=== PATIENT | female | born 1965 | race Caucasian/White ===

== ENCOUNTER → 2022-12-26 | Day surgery (SDC) | payer MEDICAID ==
[~2022-12-26] VITALS: Ht 152.4 cm; Wt 79.4 kg
[~2022-12-26] MED LIST: BUPIVACAINE HCL/PF 0.5% (5MG/ML) 10ML ONE; CEFAZOLIN SODIUM 1000MG/VIAL ONE; FENTANYL CITRATE/PF 50MCG/ML 2ML VIAL IV PRN; FENTANYL CITRATE/PF 50MCG/ML 2ML VIAL ONE; HYDR-4001 MT; HYDROCODONE/ACETAMINOPHEN 5/325MG TABLET PO NR; IBUP-2029 PO; LACTATED RINGERS 1,000 ML IV SCH; MEPERIDINE HCL/PF 25MG/ML CPJ IV PRN; MIDAZOLAM HCL 2 MG/2 ML VIAL ONE; NOREPINEPHRINE 8MG/250ML PMX 250ML IV PRN; OMEP20TA23 PO; ONDA4TAB11 PO; ONDANSETRON HCL 4MG/2ML INJ IV PRN; PROPOFOL 200MG/20ML VIAL IV ONE; ROCURONIUM BROMIDE 10MG/ML VIAL 5ML IV ONE
[2022-12-26 08:13] LABS: UCG SCREEN NEGATIVE
[2022-12-26] MEDS: HYDROMORPHONE HCL/PF 2MG/ML CPJ IV PRN ×2 (14:15→14:33)
[2022-12-26 14:33] VITALS: BP 118/69
== END | disposition home or self-care (01) ==
LOC: OR 07:38
PROVIDERS: ATTEND Surgery
DX: K43.9 Ventral hernia without obstruction or gangrene (principal); K21.9 Gastro-esophageal reflux disease without esophagitis; E66.3 Overweight; Z79.899 Other long term (current) drug therapy; Z98.890 Other specified postprocedural states; Z20.822 Contact with and (suspected) exposure to COVID-19; Z88.0 Allergy status to penicillin
CPT/HCPCS: 49593; 81025; 87426; C1781; C9803; J0690; J1170; J2250; J2405; J2704; J3010; J3490

== ENCOUNTER 2022-12-27 18:24 | Emergency (ER) | payer MEDICAID, OTHER ==
[~2022-12-27] VITALS: Ht 152.4 cm; Wt 70.0 kg
[~2022-12-27 18:24] MED LIST changes: -BUPIVACAINE HCL/PF 0.5% (5MG/ML) 10ML ONE; -CEFAZOLIN SODIUM 1000MG/VIAL ONE; -FENTANYL CITRATE/PF 50MCG/ML 2ML VIAL IV PRN; -FENTANYL CITRATE/PF 50MCG/ML 2ML VIAL ONE; -HYDR-4001 MT; -HYDROCODONE/ACETAMINOPHEN 5/325MG TABLET PO NR; -LACTATED RINGERS 1,000 ML IV SCH; -MEPERIDINE HCL/PF 25MG/ML CPJ IV PRN; -MIDAZOLAM HCL 2 MG/2 ML VIAL ONE; -NOREPINEPHRINE 8MG/250ML PMX 250ML IV PRN; -ONDA4TAB11 PO; -ONDANSETRON HCL 4MG/2ML INJ IV PRN; -PROPOFOL 200MG/20ML VIAL IV ONE; -ROCURONIUM BROMIDE 10MG/ML VIAL 5ML IV ONE
[2022-12-27 20:40] LABS: BASOPHILS % 0.2 % (0.0-2.0); HEMATOCRIT. 33.4 % (36.0-48.0); HEMOGLOBIN. 11.7 g/dL (12.0-16.0); LYMPHOCYTES % 11.6 % (20.0-50.0); MEAN CORPUSCULAR HEMOGLOBIN 33.1 pg (28.0-32.0); MEAN CORPUSCULAR VOLUME 94.8 fL (81.0-99.0); MEAN PLATELET VOLUME 9.1 fl (7.4-10.4); MONOCYTES % 5.2 % (2.0-8.0); PLATELET 200 x1000/uL (130-400); RED BLOOD CELL COUNT 3.52 mill/uL (4.2-5.4)
[2022-12-27] MEDS ORDERED: ONDANSETRON HCL 4MG/2ML INJ IV STA (20:41)
[2022-12-27] MEDS ORDERED: MORPHINE SULFATE 4 MG/ML CPJ (NOT FOR IM USE) IV STA (20:41)
[2022-12-27 20:45] LABS: CHLORIDE 104 mEq/L (98-107)
[2022-12-27 20:50] LABS: CLARITY URINE CLEAR (CLEAR); COLOR URINE YELLOW (YELLOW); KETONES URINE 1+ (NEGATIVE); LEUKOCYTE ESTERASE URINE 2+ (NEGATIVE); NITRITE URINE NEGATIVE (NEGATIVE); OCCULT BLOOD URINE 2+ (NEGATIVE); PROTEIN URINE NEGATIVE (NEGATIVE); SPECIFIC GRAVITY URINE 1.016 (1.005-1.030); UROBILINOGEN URINE 0.2 E.U./dL (0.2-1.0)
[2022-12-27] MEDS ORDERED: IOHEXOL-300 100 ML BOTTLE ONE ×2 (20:53→23:14)
[2022-12-28] MEDS ORDERED: KETOROLAC 60MG/2ML VIAL IM ONE (01:45)
[2022-12-28 02:44] VITALS: BP 137/53
[2022-12-28] MEDS ORDERED: HYDR-4001 MT (03:28)
[2022-12-28] MEDS ORDERED: ONDA4TAB11 PO (03:28)
== END 2022-12-28 04:16 | disposition home or self-care (01) ==
LOC: ER 18:24
DX: R10.32 Left lower quadrant pain (principal); Z98.890 Other specified postprocedural states
CPT/HCPCS: 36415; 74177; 80053; 81003; 83690; 85025; 93005; 96372; 96374; 96375; 99285; J1885; J2270; J2405; Q9967; Z7610